=== PATIENT | male | born 1950 | race Caucasian/White ===

== ENCOUNTER 2021-04-06 21:18 | Inpatient (IN) | payer MEDICARE, SELFPAY ==
[2021-04-06 21:56] VITALS: BP 159/73; PULSE 109; RESP 22; TEMP 36.2; O2SAT 95
[2021-04-06 21:57] VITALS: BMI 34.6
--- NOTE | 2021-04-07 00:09 | PC.ADMIT ---
patient arrived via ambulance stretcher from [facility] for admission to [facility] for psychiatric evaluation. Patient is alert and oriented times two cannot remember month or situation. Patient is cooperative during admission process but is easily distracted, Patient states I'm getting out of here tomorrow morning . Patient states No one talked to me about coming here . Patient did sign consents and did say he is non-compliant with his home medications. Patient denies and thoughts of SI. patients substance abuse history was resolved five years ago per patient. Explained to patient process of admission here and evaluation process. After admission patient wanted to go to sleep. Patient escorted to his room and is on 5 minute safety checks. Called MD working second hand for orders.
[2021-04-07] MEDS: Levothyroxine Sodium 25 MCG TABLET PO (05:30)
[2021-04-07] MEDS: Omeprazole 20 MG CAPSULE.DR PO (05:30)
[2021-04-07 05:39] VITALS: BP 135/74; PULSE 98; RESP 18; TEMP 36.6; O2SAT 96
[2021-04-07 07:04] LABS: Glucose, Whole Blood 183 mg/dL (60-115)
[2021-04-07] MEDS: Insulin Lispro 100 UNIT/ML 3 ML VIAL SUBCUT ×4 (07:56→21:18)
[2021-04-07] MEDS: DULoxetine HCl 60 MG CAPSULE.DR PO (07:58)
[2021-04-07] MEDS: metFORMIN HCl 500 MG TABLET PO ×2 (07:58→16:40)
[2021-04-07] MEDS: levETIRAcetam 1,000 MG TABLET 1000 MG PO ×2 (07:58→21:09)
[2021-04-07] MEDS: Sennosides 8.6 MG TABLET PO (07:58)
[2021-04-07] MEDS: Atorvastatin Calcium 40 MG TABLET PO (07:58)
[2021-04-07] MEDS: Furosemide 20 MG TABLET PO ×2 (07:59→21:09)
[2021-04-07] MEDS: Tamsulosin HCL 0.4 MG CAPSULE PO (08:00)
[2021-04-07] MEDS: Folic Acid 1 MG TABLET PO (08:00)
[2021-04-07] MEDS: Thiamine HCL 100 MG TABLET PO (08:00)
[2021-04-07 09:47] VITALS: BP 95/67; PULSE 107
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
[2021-04-07 11:55] LABS: Glucose, Whole Blood 248 mg/dL (60-115)
[2021-04-07] MEDS: Fluticasone/Vilanterol 200/25 BLST.W.DEV 1 PUFF INHALE (13:14)
--- NOTE | 2021-04-07 14:36 | MHC.CLN ---
Addendum entered by Parvin Tate RD 04/07/21 14:39: USED PNI=[id number]#, 70 KG FOR CALORIC CALCULATION DUE TO BMI=34.6. Original Note: DIET DIET CHANGED FROM DIABETIC 1800 KCAL TO DIABETIC 2000 KCAL. DIET PROVIDES 28.6 KCALS/KG.
[2021-04-07 16:36] LABS: Glucose, Whole Blood 173 mg/dL (60-115)
[2021-04-07] MEDS: Rivaroxaban 20 MG TABLET PO (17:15)
[2021-04-07 18:00] VITALS: BP 101/60; PULSE 109; RESP 18; TEMP 36.5; O2SAT 98
[2021-04-07 21:00] VITALS: BP 110/56; PULSE 108; RESP 18; TEMP 36.9
[2021-04-07] MEDS: Insulin Glargine,Hum.rec.anlog 100 UNIT/ML 10 ML VIAL 48 UNIT SUBCUT (21:07)
[2021-04-07] MEDS: Mirtazapine 15 MG TABLET PO (21:09)
[2021-04-07] MEDS: Melatonin 3 MG TABLET 9 MG PO (21:09)
[2021-04-07 21:41] LABS: Glucose, Whole Blood 153 mg/dL (60-115)
[2021-04-08] MEDS: Levothyroxine Sodium 25 MCG TABLET PO (06:29)
[2021-04-08] MEDS: Omeprazole 20 MG CAPSULE.DR PO (06:29)
[2021-04-08 06:52] LABS: Glucose, Whole Blood 176 mg/dL (60-115)
[2021-04-08] MEDS: Folic Acid 1 MG TABLET PO (08:23)
[2021-04-08] MEDS: Thiamine HCL 100 MG TABLET PO (08:23)
[2021-04-08] MEDS: Furosemide 20 MG TABLET PO ×2 (08:23→20:46)
[2021-04-08] MEDS: dilTIAZem HCL CD 180 MG CAP.ER.24H PO (08:23)
[2021-04-08] MEDS: DULoxetine HCl 60 MG CAPSULE.DR PO (08:23)
[2021-04-08] MEDS: Atorvastatin Calcium 40 MG TABLET PO (08:23)
[2021-04-08] MEDS: Sennosides 8.6 MG TABLET PO (08:23)
[2021-04-08] MEDS: Insulin Lispro 100 UNIT/ML 3 ML VIAL SUBCUT ×2 (08:23→16:27)
[2021-04-08] MEDS: metFORMIN HCl 500 MG TABLET PO ×2 (08:23→16:56)
[2021-04-08] MEDS: Tamsulosin HCL 0.4 MG CAPSULE PO (08:24)
[2021-04-08] MEDS: levETIRAcetam 1,000 MG TABLET 1000 MG PO ×2 (08:24→20:45)
--- NOTE | 2021-04-08 12:06 | HO.PSYCHPN ---
Subjective Subjective Date of Service: 04/08/21 Reason For Visit: Unspecific Depressive Disorder Subjective Notes: Conditional Voluntary Interim History: The patient wants to be discharged. He denies depressive symptoms, he denies suicidal thoughts. We contacted his and she reported that he is usually aggressive and sabotages the treatment for non-compliance. Review of Systems Acute medical concerns: No Medical Review of Systems: unchanged Mental Status Exam Mental Status Exam Patient Appearance: Disheveled Patient Orientation: Person, Place, Time and Situation Level of Consciousness: Awake Patient Behavior: Passive and Asleep Mood Description: Depressed Affect Description: Constricted Patient Cognition Impaired: No Ability to Follow Directions: Good Speech Pattern: Clear Memory Description: Intact Hallucinations: None Delusions: Not Present Thought Process: Slowed Thinking Thought Content: positive for Circumstantial and positive for Poverty of Content Judgement: Fair Diagnostics Vital Signs (24Hr): Vital Signs - 24 hr 04/07/21 18:00 04/07/21 21:00 Temperature 97.7 F 98.4 F Pulse Rate 109 H 108 H Respiratory Rate 18 18 Blood Pressure 101/60 110/56 L Pulse Oximetry 98 Body Mass Index 34.6 Labs Labs: Laboratory Results - last 48 hr 04/07/21 04/07/21 04/07/21 06:59 11:51 16:31 POC Glucose 183 H 248 H 173 H 04/07/21 04/08/21 21:06 06:48 POC Glucose 153 H 176 H Medications Medications Current Medications Generic Name Dose Route Start Last Admin Trade Name Freq PRN Reason Stop Dose Admin Albuterol Sulfate 1 puff 04/06/21 23:54 Albuterol Sulfate 90 Mcg 8 Gm Inhaler INHALE QID PRN Wheezing Atorvastatin Calcium 40 mg 04/07/21 09:00 04/08/21 08:23 Atorvastatin Calcium 40 Mg Tablet PO 40 mg DAILY [facility] Administration Diltiazem HCl 180 mg 04/07/21 09:00 04/08/21 08:23 Diltiazem Hcl Cd 180 Mg Cap.Er.24h PO 180 mg DAILY [facility] Administration Protocol Duloxetine HCl 60 mg 04/07/21 09:00 04/08/21 08:23 Duloxetine Hcl 60 Mg Capsule.Dr PO 60 mg DAILY [facility] Administration Fluticasone/Vilanterol 1 puff 04/07/21 02:15 04/08/21 06:26 Fluticasone/Vilanterol 200/25 Blst.W.Dev INHALE Not Given Q12H [facility] Folic Acid 1 mg 04/07/21 09:00 04/08/21 08:23 Folic Acid 1 Mg Tablet PO 1 mg DAILY [facility] Administration Furosemide 20 mg 04/07/21 09:00 04/08/21 08:23 Furosemide 20 Mg Tablet PO 20 mg BID [facility] Administration Protocol Insulin Glargine 48 unit 04/07/21 21:00 04/07/21 21:07 Insulin Glargine,Hum.Rec.Anlog 100 Unit/Ml 10 Ml Vial SUBCUT 48 unit BEDTIME [facility] Administration Insulin Human Lispro 0 unit 04/07/21 07:30 04/08/21 08:23 Insulin Lispro 100 Unit/Ml 3 Ml Vial SUBCUT 2 unit QIDACHS [facility] Administration Protocol Levetiracetam 1,000 mg 04/07/21 09:00 04/08/21 08:24 Levetiracetam 1,000 Mg Tablet PO 1,000 mg BID [facility] Administration Levothyroxine Sodium 25 mcg 04/07/21 06:00 04/08/21 06:29 Levothyroxine Sodium 25 Mcg Tablet PO 25 mcg DAILY@0600 [facility] Administration Melatonin 9 mg 04/07/21 21:00 04/07/21 21:09 Melatonin 3 Mg Tablet PO 9 mg BEDTIME [facility] Administration Metformin HCl 500 mg 04/07/21 08:00 04/08/21 08:23 Metformin Hcl 500 Mg Tablet PO 500 mg BIDWM [facility] Administration Mirtazapine 15 mg 04/07/21 21:00 04/07/21 21:09 Mirtazapine 15 Mg Tablet PO 15 mg BEDTIME [facility] Administration Omeprazole 20 mg 04/08/21 06:30 04/08/21 06:29 Omeprazole 20 Mg Capsule.Dr PO 20 mg DAILY@0630 [facility] Administration Rivaroxaban 20 mg 04/07/21 18:00 04/07/21 17:15 Rivaroxaban 20 Mg Tablet PO 20 mg DAILY@1800 [facility] Administration Senna 8.6 mg 04/07/21 09:00 04/08/21 08:23 Sennosides 8.6 Mg Tablet PO 8.6 mg DAILY [facility] Administration Tamsulosin HCl 0.4 mg 04/07/21 09:00 04/08/21 08:24 Tamsulosin Hcl 0.4 Mg Capsule PO 0.4 mg DAILY [facility] Administration Thiamine HCl 100 mg 04/07/21 09:00 04/08/21 08:23 Thiamine Hcl 100 Mg Tablet PO 100 mg DAILY [facility] Administration Allergies Allergies Allergy/AdvReac Type Severity Reaction Status Date / Time No Known Allergies Allergy Verified 04/07/21 01:16 Assessment & Plan Assessment & Plan (1) Mood disorder due to a general medical condition: Status: Acute Code(s): F06.30 - Mood disorder due to known physiological condition, unspecified (2) Major depressive disorder, recurrent: Status: Acute Code(s): F33.9 - Major depressive disorder, recurrent, unspecified (3) Delirium: Status: Acute Code(s): R41.0 - Disorientation, unspecified Assessment and Plan: The patient is an elderly male with a past history of substance abuse who has been clean and sober for several years, depression and most likely dementia transfer to this facility after an episode of altered mental status post surgery. Plan 1. Continue regular medications as per med reconciliation. 2. Start Zyprexa 5 mg po qhs. 3. Consider discharge early. Greater than 50% of the session was spent on counseling and/or coordination of care Reason for contiued inpatient stay Substantial Risk for: inability to function, rapid decompensation and med/psych decompensation
--- NOTE | 2021-04-08 12:08 | PC.NURSE ---
Pt refused to do 11:30 POC, pt stated I don't need that, I don't need to be here .
[2021-04-08 16:24] LABS: Glucose, Whole Blood 200 mg/dL (60-115)
[2021-04-08] MEDS: Rivaroxaban 20 MG TABLET PO (17:48)
[2021-04-08 17:52] VITALS: BP 124/72; PULSE 116; RESP 18; TEMP 36.2; O2SAT 97
[2021-04-08 20:40] LABS: Glucose, Whole Blood 146 mg/dL (60-115)
[2021-04-08] MEDS: Insulin Glargine,Hum.rec.anlog 100 UNIT/ML 10 ML VIAL 48 UNIT SUBCUT (20:43)
[2021-04-08] MEDS: Melatonin 3 MG TABLET 9 MG PO (20:46)
[2021-04-08] MEDS: Mirtazapine 15 MG TABLET PO (20:46)
[2021-04-08] MEDS: OLANZapine 5 MG TABLET PO (20:47)
[2021-04-09 06:00] VITALS: BP 132/72; PULSE 102; RESP 20; TEMP 36.2; O2SAT 96
[2021-04-09] MEDS: Omeprazole 20 MG CAPSULE.DR PO (06:07)
[2021-04-09] MEDS: Levothyroxine Sodium 25 MCG TABLET PO (06:07)
[2021-04-09 06:18] LABS: Glucose, Whole Blood 180 mg/dL (60-115)
[2021-04-09 09:22] VITALS: BP 133/78; PULSE 119
[2021-04-09] MEDS: dilTIAZem HCL CD 180 MG CAP.ER.24H PO (09:22)
[2021-04-09] MEDS: Thiamine HCL 100 MG TABLET PO (09:23)
[2021-04-09] MEDS: metFORMIN HCl 500 MG TABLET PO (09:23)
[2021-04-09] MEDS: Tamsulosin HCL 0.4 MG CAPSULE PO (09:23)
[2021-04-09] MEDS: Insulin Lispro 100 UNIT/ML 3 ML VIAL SUBCUT (09:23)
[2021-04-09] MEDS: Folic Acid 1 MG TABLET PO (09:23)
[2021-04-09] MEDS: Furosemide 20 MG TABLET PO (09:23)
[2021-04-09] MEDS: DULoxetine HCl 60 MG CAPSULE.DR PO (09:23)
[2021-04-09] MEDS: Sennosides 8.6 MG TABLET PO (09:23)
[2021-04-09] MEDS: Atorvastatin Calcium 40 MG TABLET PO (09:23)
[2021-04-09] MEDS: levETIRAcetam 1,000 MG TABLET 1000 MG PO (09:31)
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
== END 2021-04-09 14:46 | disposition home or self-care (01) | DRG 884 ==
PROVIDERS: Admitting Provider Psychiatry & Neurology Psychiatry; Visit Provider Psychiatry & Neurology Psychiatry
DX: F06.30 Mood disorder due to known physiological condition, unspecified (principal); F33.9 Major depressive disorder, recurrent, unspecified; F11.21 Opioid dependence, in remission; Z87.891 Personal history of nicotine dependence; Z79.4 Long term (current) use of insulin; Z79.01 Long term (current) use of anticoagulants; Z79.890 Hormone replacement therapy; Z79.899 Other long term (current) drug therapy
CPT/HCPCS: 82947